=== PATIENT | male | born 1960 | race African-American/Black ===

== ENCOUNTER 2018-06-01 14:21 | Observation (INO) ==
[2018-06-01] MEDS ORDERED: SODIUM CHLORIDE 0.9% 500 ML IV STA (14:59)
[2018-06-01] MEDS ORDERED: ONDANSETRON 4 MG/2 ML VIAL IV STA (14:59)
[2018-06-01 15:21] LABS: Basophils % 0.5 % (0.0-0.8); Eosinophils # 0.1 10*3/uL (0.0-0.87); Eosinophils % 2.1 % (0.00-10.9); Hematocrit 39.2 VOL% (42.0-52.0); Hemoglobin 12.5 GM/DL (14.0-18.0); Immature Granulocytes % 0.3 %; Immature Granulocytes Absolute 0.01 #; Lymphocytes # 1.4 10*3/uL (1.4-4.0); Lymphocytes % 36.4 % (21.2-54.2); Mean Corpuscular HGB Conc 31.9 GM/DL (32-36); Mean Corpuscular Hemoglobin 27 PG (27-34); Mean Corpuscular Volume 84.5 FL (87-102); Mean Platelet Volume 9.6 FL (9.6-12.0); Monocytes # 0.3 10*3/uL (0.11-0.8); Monocytes % 7.9 % (1.7-12.7); Neutrophils % 52.8 % (38.7-73.9); Platelet Count 287 T/CUMM (130-400); Red Blood Count 4.64 MC/CUMM (3.8-5.5); Red Cell Distribution Width 12.5 % (9.3-17.3); White Blood Count 3.8 T/CUMM (4-12)
[2018-06-01 15:28] LABS: INR 1.2; PT Patient Result 13.4 SECS
[2018-06-01 15:48] LABS: Alanine Aminotransferase 14 U/L (16-61); Albumin 3.3 G/DL (3.4-5.0); Alkaline Phosphatase 54 U/L (45-117); Aspartate Amino Transferase 8 U/L (0-37); Bilirubin,Total < 0.39 MG/DL (0.2-1.0); Blood Urea Nitrogen 17 MG/DL (7-18); Calcium 8.1 MG/DL (8.5-10.1); Glucose 87 MG/DL (74-106); Osmolality,Calculated 279.4 MOS/KG (273-304); Potassium 3.9 MMOL/L (3.5-5.1); Sodium 140 MMOL/L (136-145); Total Protein 7.2 G/DL (6.4-8.3)
[2018-06-01 16:26] LABS: Sedimentation Rate-Westergren 20 MM/HR (0-20)
[2018-06-01 17:40] LABS: Apearance,Urine CLEAR (Clear); Bacteria,Urine Occasional /HPF (Few); Bilirubin,Urine Negative (Negative); Blood, Urine Negative (Negative); Glucose,Urine (UA) Negative (Negative); Ketones,Urine 5 mg/dL (Negative); Mucus,Urine Many /LPF (Occasional); Nitrite,Urine Negative (Negative); Protein,Urine Negative; RBC,Urine 1 /HPF (0-4); Squamous Epithelial Cell,Urine Occasional /HPF (0-10); Urine Color Yellow (Yellow); Urine Specific Gravity 1.012 (1.001-1.035); Urine Urobilinogen < 2.0 EU/DL (0.2-1.0); WBC,Urine 2 /HPF (0-6)
[2018-06-01] MEDS ORDERED: LACTULOSE 20 GM/30 ML UDCUP PO PRN (18:21)
[2018-06-01] MEDS ORDERED: ACETAMINOPHEN 325 MG TABLET PO PRN (18:21)
[2018-06-01] MEDS ORDERED: DOCUSATE SODIUM 100 MG CAPSULE PO PRN (18:21)
[2018-06-01] MEDS ORDERED: PROMETHAZINE 25 MG/1 ML VIAL IM PRN (18:21)
[2018-06-01] MEDS ORDERED: ONDANSETRON 4 MG/2 ML VIAL IV PRN (18:21)
[2018-06-01] MEDS ORDERED: cloNIDine 0.1 MG TABLET PO PRN (19:10)
[2018-06-01] MEDS: PANTOPRAZOLE 40 MG TABLET PO SCH (20:40)
[2018-06-01] MEDS: APIXABAN 5 MG TABLET PO SCH (20:40)
[2018-06-02 04:28] LABS: Eosinophils # 0.1 10*3/uL (0.0-0.87); Eosinophils % 1.9 % (0.00-10.9); Hematocrit 38.8 VOL% (42.0-52.0); Hemoglobin 12.2 GM/DL (14.0-18.0); Immature Granulocytes % 0.2 %; Immature Granulocytes Absolute 0.01 #; Lymphocytes # 2.1 10*3/uL (1.4-4.0); Lymphocytes % 51.7 % (21.2-54.2); Mean Corpuscular HGB Conc 31.4 GM/DL (32-36); Mean Corpuscular Hemoglobin 27 PG (27-34); Mean Corpuscular Volume 84.9 FL (87-102); Monocytes # 0.4 10*3/uL (0.11-0.8); Monocytes % 8.5 % (1.7-12.7); Neutrophils # 1.5 10*3/uL (1.4-7.4); Neutrophils % 36.7 % (38.7-73.9); Platelet Count 255 T/CUMM (130-400); Red Blood Count 4.57 MC/CUMM (3.8-5.5); Red Cell Distribution Width 12.3 % (9.3-17.3); White Blood Count 4.1 T/CUMM (4-12)
[2018-06-02 05:07] LABS: Bilirubin,Total 0.9 MG/DL (0.2-1.0); Calcium 8.4 MG/DL (8.5-10.1); Osmolality,Calculated 283.1 MOS/KG (273-304); Potassium 3.7 MMOL/L (3.5-5.1); Risk Ratio 3.46; Thyroid Stimulating Hormone 0.791 uIU/ml (0.358-3.74); Total Protein 6.7 G/DL (6.4-8.3); VLDL CHOLESTEROL 14.2 MG/DL
[2018-06-02 05:52] LABS: Eosinophils 2 % (0-10); Hypochromasia 1+; Lymphocytes 48 % (20-55); Ovalocytes Slight; Platelet Estimate Adequate; Segmented Neutrophils 39 % (50-85); Total Cells Counted 100
[2018-06-02] MEDS ORDERED: PANTOPRAZOLE 40 MG TABLET PO SCH (09:00)
[2018-06-02] MEDS ORDERED: LOSARTAN 25 MG TABLET PO SCH (09:00)
[2018-06-02] MEDS: CARVEDILOL 3.125 MG TABLET PO SCH ×2 (09:22→17:21)
[2018-06-02] MEDS: SERTRALINE 50 MG TABLET PO SCH (09:22)
[2018-06-02] MEDS: APIXABAN 5 MG TABLET PO SCH ×2 (09:22→20:32)
[2018-06-02] MEDS: PANTOPRAZOLE 40 MG TABLET PO SCH (09:23)
[2018-06-02] MEDS ORDERED: LOSARTAN 50 MG TABLET PO ONE (18:09)
[2018-06-02] MEDS ORDERED: CARVEDILOL 3.125 MG TABLET PO SCH ×2 (18:10→18:12)
[2018-06-02] MEDS: cloNIDine 0.1 MG TABLET PO SCH (20:36)
[2018-06-03] MEDS ORDERED: LOSARTAN 50 MG TABLET PO SCH (09:00)
[2018-06-03] MEDS: cloNIDine 0.1 MG TABLET PO SCH (09:27)
[2018-06-03] MEDS: PANTOPRAZOLE 40 MG TABLET PO SCH (09:28)
[2018-06-03] MEDS: SERTRALINE 50 MG TABLET PO SCH (09:28)
[2018-06-03] MEDS: APIXABAN 5 MG TABLET PO SCH (09:28)
[2018-06-03 13:21] VITALS: BP 145/93
== END 2018-06-03 15:52 | disposition home or self-care (01) ==
LOC: EDBD → EDUNIT# → N.ED 14:21 → N.EDINP 14:21 → N.4E 19:17
PROVIDERS: ADMIT Internal Medicine; ATTEND Internal Medicine